=== PATIENT | female | born 1950 | race Caucasian/White ===

== ENCOUNTER 2017-12-26 07:15 | Day surgery (SDC) | payer MEDICARE, MEDICAID ==
[2017-12-26] MEDS ORDERED: Propofol 10 mg/ml Inj (20 ML) ONE (09:48)
[2017-12-26] MEDS ORDERED: Albuterol HFA 90 mcg/actuation (8 g) ONE (09:48)
[2017-12-26] MEDS ORDERED: Lidocaine Hydrochloride 5 ML INJ ONE (09:49)
[2017-12-26] MEDS ORDERED: Lidocaine 2% Jelly (Uro-Jet) ONE (09:54)
[2017-12-26] MEDS ORDERED: ceFAZolin IV 1 gm in Dextrose 1 GM/50 ML BAG IVPB ONE (09:54)
[2017-12-26] MEDS ORDERED: HYDROmorphone 0.5 mg/0.5 ml ISec IVP PRN (10:24)
[2017-12-26] MEDS ORDERED: Lactated Ringer's 1,000 ML IV SCH (10:30)
[2017-12-26 11:19] VITALS: RESP 16; TEMP 97.7
[2017-12-26 11:41] VITALS: BP 128/89; PULSE 89; O2SAT 97
--- NOTE | 2017-12-26 21:46 | OP ---
PROCEDURE DATE: 12/26/2017 PREOPERATIVE DIAGNOSIS: Microscopic hematuria. POSTOPERATIVE DIAGNOSIS: Microscopic hematuria. PROCEDURE: Cystoscopy. SURGEON: Gildardo Aguilar MD. TYPE OF ANESTHESIA: Local plus IV sedation. ANESTHESIA ADMINISTERED BY: Dr. Barone. DESCRIPTION OF PROCEDURE: The patient was placed on the cystoscopy table in the dorsal lithotomy position, prepped and draped in the usual sterile fashion with Betadine solution. Under adequate IV sedation, approximately 5 mL of 2% Xylocaine jelly was injected intraurethrally, followed by insertion of a #22-[place] Storz cystoscope into the bladder. Using sterile water as the irrigating solution throughout the entire procedure, the bladder was examined in all four quadrants. There were no foreign bodies or suspicious lesion seen in the bladder. No evidence of any bladder malignancy. Both ureteral orifices were normal , normal configuration on the trigone with clear efflux bilaterally. The urethra was also negative for malignancy. At the end of the procedure, the bladder was emptied of all irrigating solution, which was clear at the end of the procedure. Estimated blood loss was 0. The patient tolerated the procedure well and was brought to the recovery area in satisfactory condition. PLAN: For this patient is just to observe this patient, maintain increased fluid hydration. We will repeat urine cytologies periodically to check for any evidence of bladder cancer. Gildardo Aguilar MD
== END 2017-12-26 11:44 | disposition home or self-care (01) ==
LOC: C.SDS 07:15
PROVIDERS: ATTEND Urology
DX: R31.29 Other microscopic hematuria (principal); R35.0 Frequency of micturition; F32.9 Major depressive disorder, single episode, unspecified; M81.0 Age-related osteoporosis without current pathological fracture; J44.9 Chronic obstructive pulmonary disease, unspecified; N32.89 Other specified disorders of bladder; M06.9 Rheumatoid arthritis, unspecified; N39.41 Urge incontinence; Z79.899 Other long term (current) drug therapy
CPT/HCPCS: 52000; J0690